=== PATIENT | male | born 1945 | race Hispanic/Latino ===

== ENCOUNTER → 2023-07-20 | Outpatient (CLI) | payer OTHER, MEDICARE ==
[~2023-07-20] MED LIST: LEVO75 PO; METF-910 PO; PANT40TA54 PO; PRAV40TA3 PO; tamsulosin PO
== END | disposition home or self-care (01) ==
LOC: RAH 08:39
PROVIDERS: ATTEND Internal Medicine
DX: K80.20 Calculus of gallbladder without cholecystitis without obstruction (principal); N28.1 Cyst of kidney, acquired; R10.10 Upper abdominal pain, unspecified
CPT/HCPCS: 76700

== ENCOUNTER → 2023-08-30 | Outpatient (CLI) | payer OTHER, MEDICARE | END | disposition home or self-care (01) | LOC: RAH 13:58 | PROVIDERS: ATTEND Urology | DX: C64.1 Malignant neoplasm of right kidney, except renal pelvis (principal); M85.88 Other specified disorders of bone density and structure, other site | CPT/HCPCS: 78306; A9503 ==

== ENCOUNTER → 2024-06-19 | Outpatient (CLI) | payer OTHER, MEDICAID ==
[2024-06-19 14:08] LABS: BASOPHILS # (AUTO) 0.01 K/uL (0.00-0.20); BASOPHILS % (AUTO) 0.2 % (0.0-5.0); EOSINOPHILS # (AUTO) 0.03 K/uL (0.00-0.70); EOSINOPHILS % (AUTO) 0.5 % (0.0-8.0); HEMATOCRIT 42.1 % (42-54); IMMATURE GRANULOCYTE ABSOLUTE 0.02 K/uL (0-1); LYMPHOCYTES # (AUTO) 0.8 K/uL (1.0-4.8); LYMPHOCYTES % (AUTO) 13.8 % (21.0-51.0); MEAN CORPUSCULAR HEMOGLOBIN 32.4 pg (27.0-33.0); MEAN CORPUSCULAR HGB CONC 33.5 g/dL (32.0-36.0); MEAN CORPUSCULAR VOLUME 96.8 fL (79-99); MONOCYTES # (AUTO) 0.5 K/uL (0.1-1.0); MONOCYTES % (AUTO) 8.5 % (3.0-13.0); NEUTROPHILS # (AUTO) 4.4 K/uL (1.8-7.7); NEUTROPHILS % (AUTO) 76.7 % (40.0-77.0); PLATELET COUNT (AUTO) 169 K/uL (130-400); RED BLOOD CELL COUNT(AUTO) 4.35 MIL/uL (4.50-6.20); RED CELL DISTRIBUTION WIDTH 12.2 % (11.0-15.5); WHITE BLOOD COUNT (AUTO) 5.8 K/uL (4.8-10.8)
--- NOTE | 2024-06-19 14:32 | HMCIMG ---
Exam Type: CHEST 2VWS Clinical Information: MALIGNANT NEOPLASM OF RIGHT KIDNEY, EXCEPT RENAL PELVIS Comparison: None Findings: The lungs are clear of infiltrates. The heart is normal in size. The bony and soft tissue structures of the chest are unremarkable. Impression: Clear lungs.
[2024-06-19 14:35] LABS: CREATININE 1.4 mg/dL (0.5-1.3); POTASSIUM 4.2 mmol/L (3.5-5.1)
== END | disposition home or self-care (01) ==
LOC: RAH 13:19
PROVIDERS: ATTEND Urology
DX: C64.1 Malignant neoplasm of right kidney, except renal pelvis (principal)
CPT/HCPCS: 36415; 71046; 80048; 85025

== ENCOUNTER → 2024-07-09 | Outpatient (CLI) | payer OTHER, MEDICARE ==
[~2024-07-09] MED LIST changes: +IOHEXOL 350 MG/ML 100ML INFUS..BTL IV ONE
--- NOTE | 2024-07-09 09:46 | HMCIMG ---
CT CHEST/ABD/PELV W/WO CONTRAS HISTORY: Malignant neoplasm of right kidney COMPARISON: [id number] TECHNIQUE: Multiple sequential axial images of the chest were obtained from the thoracic inlet through upper abdomen. Patient was given 75 cc of Omnipaque through intravenous route. FINDINGS: There is no evidence of pulmonary nodule or parenchymal disease. No pleural effusion or pericardial effusion is seen. There is no evidence of pneumothorax. There are normal size mediastinal and hilar lymph nodes. The heart is not enlarged. Degenerative changes of the thoracolumbar spine are present. There is no evidence of adrenal nodule. IMPRESSION: 1. No evidence of pulmonary nodule or effusion is seen. CT CHEST/ABD/PELV W/WO CONTRAS HISTORY: Malignant neoplasm of right. COMPARISON: None TECHNIQUE: Multiple sequential axial images of the abdomen and pelvis were obtained from the dome of the diaphragm through symphysis pubis. Patient was given 75 cc of Omnipaque through intravenous route. Oral contrast was not given. FINDINGS: The liver, spleen, adrenal glands and pancreas are unremarkable. Right kidney has been removed. No hydronephrosis is seen of left kidney. There is simple left renal cyst measuring 5 x 4.5 cm. No evidence of renal stone is seen. Fecal material is seen in the colon. There are normal size retroperitoneal and mesenteric lymph nodes. No ascites is seen. No CT evidence of acute appendicitis is seen. There is diverticulosis. Pelvic sidewalls are symmetric bilaterally. Bladder is well distended without wall thickening. IMPRESSION: 1. Right kidney has been removed. No hydronephrosis is seen of left kidney. There is simple left renal cyst measuring [address] was performed with one or more following dose reduction techniques: automated exposure control, adjustment of the mA and kv according to patient's size, or use of a iterative reconstruction technique.
== END | disposition home or self-care (01) ==
LOC: RAH 07:25
PROVIDERS: ATTEND Urology
DX: N28.1 Cyst of kidney, acquired (principal); K57.90 Diverticulosis of intestine, part unspecified, without perforation or abscess without bleeding; M47.815 Spondylosis without myelopathy or radiculopathy, thoracolumbar region; C64.1 Malignant neoplasm of right kidney, except renal pelvis; N32.89 Other specified disorders of bladder
CPT/HCPCS: 71270; 74178; Q9967

== ENCOUNTER → 2024-08-12 | Outpatient (CLI) | payer OTHER, MEDICARE ==
[~2024-08-12] MED LIST changes: +GADOTERATE MEGLUMINE 10 MMOL/20 ML VIAL IV ONE; -IOHEXOL 350 MG/ML 100ML INFUS..BTL IV ONE; -PRAV40TA3 PO; +PRAV40TA62 PO
--- NOTE | 2024-08-13 10:22 | HMCIMG ---
EXAM: MR Left shoulder with and without contrast. CLINICAL HISTORY: Pain. TECHNIQUE: Multisequence, multiplanar magnetic resonance images of the left shoulder. CONTRAST: 16 ml Clariscan. COMPARISON: None provided. FINDINGS: Moderate acromioclavicular joint osteoarthritis. Full-thickness partial-width tear of the anterior fibers of the supraspinatus tendon with retracted fibers at the level of the acromioclavicular joint. 5.4 mm articular surface partial thickness tear of the posterior supraspinatus tendon. There is moderate to severe tendinosis of the posterior fibers of the infraspinatus and posterior supraspinatus tendons. Mild cranial migration of the humeral head with reduced acromiohumeral distance measuring 5 mm. Mild fluid in the subacromial subdeltoid bursal space. The subscapularis, infraspinatus, and teres minor tendons are intact. Unremarkable glenohumeral joint. Tear of the posterior superior glenoid labrum with 5 mm paralabral cyst. Mild glenohumeral joint effusion. Mild synovial and bursal enhancement on the post contrast images. Complete tear of the intra-articular segment of the long head of the biceps tendon. Bone marrow signal is fairly homogeneous; no fracture or AVN. Intact intrinsic ligaments. The deltoid and the other surrounding muscles are unremarkable. No soft tissue masses. IMPRESSION: 1. Full-thickness partial-width anterior supraspinatus tendon tear with retraction to the AC joint, and 5.4 mm articular surface partial-thickness tear of the posterior supraspinatus tendon. Moderate to severe tendinosis of the posterior fibers of the infraspinatus and posterior supraspinatus tendons. 2. Complete tear of the intra-articular segment of the long head of the biceps tendon. 3. Posterior superior glenoid labral tear with 5 mm paralabral cyst. 4. Moderate AC joint osteoarthritis. 5. Mild glenohumeral joint effusion with mild synovial and bursal enhancement, and mild subacromial subdeltoid bursal fluid. /[place]
== END | disposition home or self-care (01) ==
LOC: RAH 13:01
PROVIDERS: ATTEND Internal Medicine
DX: S46.112A Strain of muscle, fascia and tendon of long head of biceps, left arm, initial encounter (principal); S43.432A Superior glenoid labrum lesion of left shoulder, initial encounter; M75.122 Complete rotator cuff tear or rupture of left shoulder, not specified as traumatic; M19.012 Primary osteoarthritis, left shoulder; M67.814 Other specified disorders of tendon, left shoulder; M25.812 Other specified joint disorders, left shoulder; M25.412 Effusion, left shoulder; M25.512 Pain in left shoulder; X58.XXXA Exposure to other specified factors, initial encounter; Y93.89 Activity, other specified; Y92.89 Other specified places as the place of occurrence of the external cause; Y99.8 Other external cause status
CPT/HCPCS: 73223; A9575